=== PATIENT | male | born 1990 | race Asian ===

== ENCOUNTER 2023-05-30 18:28 | Emergency (ER) | payer SELFPAY | END 2023-05-30 19:50 | disposition home or self-care (01) | LOC: LL.ED 18:28 | DX: T78.2XXA Anaphylactic shock, unspecified, initial encounter (principal); Z91.013 Allergy to seafood; R06.2 Wheezing; Z79.899 Other long term (current) drug therapy | CPT/HCPCS: 99283; 99284 ==

== ENCOUNTER 2024-01-23 17:04 | Emergency (ER) | payer BC ==
[2024-01-23] MEDS ORDERED: Sodium Chloride 0.9% 10 ML Syringe FLUSH PRN (17:21)
[2024-01-23] MEDS: Pantoprazole 40 MG Vial IVPUSH ONE (17:59)
[2024-01-23] MEDS: Metoclopramide 10 MG/2 ML SDV IVPUSH ONE (18:00)
== END 2024-01-23 17:24 | disposition home or self-care (01) ==
LOC: LL.ED 17:04
DX: R06.6 Hiccough (principal); J45.909 Unspecified asthma, uncomplicated; Z79.899 Other long term (current) drug therapy; Z91.013 Allergy to seafood
CPT/HCPCS: 99283

== ENCOUNTER 2024-01-30 00:27 | Emergency (ER) | payer BC ==
[2024-01-30] MEDS: Albuterol/Ipratropium 3.0-0.5 MG/3 ML Neb Soln NEB ONE (00:32)
== END 2024-01-30 01:20 | disposition left against medical advice (07) ==
LOC: LL.ED 00:27
DX: F10.120 Alcohol abuse with intoxication, uncomplicated (principal); J45.909 Unspecified asthma, uncomplicated; Z91.013 Allergy to seafood
CPT/HCPCS: 94640; 99283; 99285; J7620-GY

== ENCOUNTER 2024-05-31 20:14 | Emergency (ER) | payer BC ==
[2024-05-31 20:17] VITALS: BP 150/92; PULSE 81
== END 2024-05-31 20:40 | disposition left against medical advice (07) ==
LOC: LL.ED 20:14
DX: Z53.21 Procedure and treatment not carried out due to patient leaving prior to being seen by health care provider (principal)